=== PATIENT | male | born 1990 | race Hispanic/Latino ===

== ENCOUNTER 2019-03-23 18:03 | Emergency (ER) | payer OTHER ==
[~2019-03-23] VITALS: Ht 170.2 cm; Wt 70.0 kg
[2019-03-23] MEDS ORDERED: SILVADENE1 % EX (18:22)
[2019-03-23] MEDS ORDERED: IBUPROFEN600 MG PO (18:22)
[2019-03-23] MEDS ORDERED: TRAMADOL HCL50 MG PO (18:22)
[2019-03-23 18:42] VITALS: BP 131/69
== END 2019-03-23 18:42 | disposition home or self-care (01) ==
LOC: ED 18:03
DX: T23.261A Burn of second degree of back of right hand, initial encounter (principal); T23.131A Burn of first degree of multiple right fingers (nail), not including thumb, initial encounter; X10.2XXA Contact with fats and cooking oils, initial encounter; Y93.G3 Activity, cooking and baking; Y92.000 Kitchen of unspecified non-institutional (private) residence as the place of occurrence of the external cause

== ENCOUNTER 2019-04-08 03:05 | Emergency (ER) | payer OTHER ==
[~2019-04-08] VITALS: Ht 170.2 cm; Wt 75.0 kg
[~2019-04-08 03:05] MED LIST: IBUPROFEN600 MG PO; SILVADENE1 % EX; TRAMADOL HCL50 MG PO
[2019-04-08] MEDS ORDERED: TORADOL PO (03:49)
[2019-04-08 04:05] VITALS: BP 11/68
== END 2019-04-08 04:05 | disposition home or self-care (01) ==
LOC: ED 03:05
DX: S20.211A Contusion of right front wall of thorax, initial encounter (principal); W01.198A Fall on same level from slipping, tripping and stumbling with subsequent striking against other object, initial encounter; Y92.009 Unspecified place in unspecified non-institutional (private) residence as the place of occurrence of the external cause